=== PATIENT | male | born 1990 | race Caucasian/White ===

== ENCOUNTER 2019-10-11 15:00 | Outpatient (RCR) | payer OTHER, SELFPAY ==
--- NOTE | 2019-08-03 13:26 | HP.PTEVAL_ITS ---
Patient's Visit Information ENEDINA CASILLAS is a 29 year old M referred to Physical Therapy by Dr. Fransico Velarde MD with a diagnosis of LBP, prirformis syndrome. Date of Evaluation: 08/03/19 Physical Therapist: Ward Patterson, DPT, OCS, CSCS - Visit Plan Frequency: 2-3x /Week Duration: 4-6 Weeks Plan: 2-3x/week for 2-6 weeks : L/S ext mobs and ext bias ROM progressing to remodelling ex and core strength to tolerance. rollout and stretch R piriformis. Progression to yoga flows and wrestling moves to tolerance once back on regular workout. Ensure approp body mechanics and posture throughout. 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 Sriram philip adn continued stretching adn running. Then started some L sided back pain shortly thereafter about a month ago late June. Stretched and used foam roller and froze up and lost ROM. Doctor wants him to stretch and use muscle relaxers which has improved his ROM and flex but still has spasm on L LB. Back to doctor yesterday who ordered more muscle relaxers, prednisone and therapy for possible piriformis syndrome. Doesn't have any pain down legs or numbness. 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 Sitting is comfortable for a little while and getting up is L LB painful and radha. Flexing to stand is irritating. Doesn't feel much in R hip until starts to stretch aggressively. Sleep is OK. Mornings are stiff in LB but not bad. Basic ADLs are OK. Avoiding sprinting due to R piriformis pain(not since May). Avoids jogging as it irritates back. Can jump rope. Doing light dumbbells and tolerates OK upper body. Squatting makes back pain noticeable. - Pain L LB Pain Intensity (Out of 10): 0 Pain Intensity Range: 0, 6 R hip pirifromis Pain Intensity (Out of 10): 0 Pain Intensity Range: 0, 6 - Objective Walks normal, Posture is forward head and flat lordosis. Tenderness slightly over R piriformis Also to PA pressure L34 in lumbar spine. reflexes 2/3 patella adn achilles. Senation LE WNL to gross lgiht touch. Strength LE 4+/5 without pain. - slump, -SLR. repeated ext seems to increase LB ROM and decrease pain with movmement. - Goals Goal 1:: Full LS AROM without pain including touch ground in front without hip pain. Goal Time Frame: 4-6 Weeks Goal 2:: Pt feel 90% better and back to normal workout Goal Time Frame: 4-6 Weeks Goal 3:: Arise from chair consistently without pain Goal Time Frame: 4-6 Weeks Goal 4:: I approp HEP to minimize future problems. Goal Time Frame: 4-6 Weeks - Rehabilitation Potential Physical Therapy Diagnosis: LBP likely discal, piriformis syndrome. Rehabilitation Potential: Good - Anticipated Interventions Patient/Client Instruction: Educate patient on: Condition, Plan of Care For the Purpose of:: To decrease pain, To increase ROM, To increase tolerance to activity/condition/position Therapeutic Exercise to Include: Strength training, Postural training, Flexibilty training, Neuromotor development, Passive ROM, Active ROM, Dynamic Lumbar Stabilization, Jessy Exercises For the Purpose of:: To decrease pain, To increase ROM, To improve muscle performance and motor function, To increase tolerance to activity/condition/position, To improve ability of physical actions for home/community/work/leisure Manual Therapy Techniques to Include: Mobilization For the Purpose of:: To increase ROM Thank you for the opportunity to evaluate your patient. For Medicare and Medicare HMO plans, please review the plan of care and approve it. It will need to be FAXED BACK to us at [phone] for Medicare purposes. For Medicare only, by signing this I certify the plan of care. Please let me know if there are questions or concerns regarding this plan of care. Physician Signatur e: Date:
--- NOTE | 2019-08-23 14:08 | HP.PTREVAL_ITS ---
Dr. Fransico Velarde MD, It has been my pleasure to treat ENEDINA CASILLAS over the last 7 visits for LBP, prirformis syndrome. Please see the progress note below for an update on the physical therapy plan of care! Subjective: Going the right way. Still can feel spasm in left lower back but less intense. Sitting too long will make it worse still especially without support. PPU every two hours. Set back a few days ago. Still conscious of posture adn HEP. Objective/Function: Segmentally still limited in lower rlumbar, no pain and better movment after mobs today to low back ext.. Flexion is still slow and tight. Pain much improved. On the right track but slow. Plan Plan: weekly to progress function adn ROM.Do ext mobs weekly to low back, check extension and flexion and add rotation yoga next session if able, Monitor squat, ballistic and jumping. Goals Goal 1:: Full LS AROM without pain including touch ground in front without hip pain. Goal Time Frame: 4-6 Weeks Goal Progress: Progressing Goal 2:: Pt feel 90% better and back to normal workout Goal Time Frame: 4-6 Weeks Goal Progress: Progressing Goal 3:: Arise from chair consistently without pain Goal Time Frame: 4-6 Weeks Goal Progress: Goal Met Goal 4:: I approp HEP to minimize future problems. Goal Time Frame: 4-6 Weeks Goal Progress: Progressing Anticipated Interventions Patient/Client Instruction: Educate patient on: Condition, Plan of Care For the Purpose of:: To decrease pain, To increase ROM, To increase tolerance to activity/condition/position Therapeutic Exercise to Include: Strength training, Postural training, Flexibilty training, Neuromotor development, Passive ROM, Active ROM, Dynamic Lumbar Stabilization, Jessy Exercises For the Purpose of:: To decrease pain, To increase ROM, To improve muscle performance and motor function, To increase tolerance to activi ty/condition/position, To improve ability of physical actions for home/community/work/leisure Manual Therapy Techniques to Include: Mobilization For the Purpose of:: To increase ROM Please do not hesitate to contact me at [phone] by phone or if you have questions or concerns regarding this new plan of care! Sincerely, Ward Patterson, DPT, OCS, CSCS
--- NOTE | 2019-09-20 15:37 | HP.PTREVAL ---
Dr. Fransico Velarde MD, It has been my pleasure to treat ENEDINA CASILLAS over the last 9 visits for LBP, prirformis syndrome. Please see the progress note below for an update on the physical therapy plan of care! Subjective: Had a setback 9 days ago. backed off and did not do much except stretches and it worked. Last 8 days have been good. No pain, tightness in LB persists at times. Been doing half squats and box squats without a problem with 20# DB. Did hang cleans and deadlifts withotu issue staying fairly light. Jumping rope and hitting heavy bag OK. Objective/Function: Lumbar extension is full and painfree, felxion is full, SB are full, no pain today. moving well. Hip tightness seems to keep pelvis posteriorly tilted at bottom of squat casuing some tightness. Pt feels this well and can try and work on it at home with my cueing. Plan Plan: Pt to work on hip flexibility at home, continue to progress core strength per below and try to gradually lower squat without pelvis moving dysfunctionally . F/U in 3 weeks to ensure progress and talk about sit ups and returning to wrestling. New goal set adn fair prognosis to cotninue intermittent f/u with patient doing the work at home. Goals Goal 1:: Full LS AROM without pain including touch ground in front without hip pain. Goal Time Frame: 4-6 Weeks Goal Progress: Goal Met Goal 2:: Pt feel 90% better and back to normal workout Goal Time Frame: 4-6 Weeks Goal Progress: Progressing,approp Goal 3:: Arise from chair consistently without pain Goal Time Frame: 4-6 Weeks Goal Progress: Goal Met Goal 4:: I approp HEP to minimize future problems. Goal Time Frame: 4-6 Weeks Goal Progress: Progressing,a pprop Goal 5:: Squat past 90 without pelvis flexing L/S forward Goal Time Frame: 2-4 Weeks Goal Progress: NEW GOAL Anticipated Interventions Patient/Client Instruction: Educate patient on: Condition, Plan of Care For the Purpose of:: To decrease pain, To increase ROM, To increase tolerance to activity/condition/position Therapeutic Exercise to Include: Strength training, Postural training, Flexibilty training, Neuromotor development, Passive ROM, Active ROM, Dynamic Lumbar Stabilization, Jessy Exercises For the Purpose of:: To decrease pain, To increase ROM, To improve muscle performance and motor function, To increase tolerance to activity/condition/position, To improve ability of physical actions for home/community/work/leisure Manual Therapy Techniques to Include: Mobilization For the Purpose of:: To increase ROM Please do not hesitate to contact me at [phone] by phone or if you have questions or concerns regarding this new plan of care! Sincerely, Ward Patterson, DPT, OCS, CSCS
--- NOTE | 2019-10-11 15:44 | HP.PTDCSUM_ITS ---
It has been my pleasure to treat ENEDINA CASILLAS referred by Dr. Fransico Velarde MD, with the diagnosis of LBP, prirformis syndrome for a total of 10 visit(s). Discharge Date: 10/11/19 Please see the following information for a summary of their discharge status. Subjective: Got back to pretty good. Still has baseline constant R LBP 2/10 with a spike now and then back down. Has stopped since we talked the bag. Has run alot more. Not doing the more dynamic stuff of agility. Doing really light squats. To doctor in October end. Pain on R side comes around to lateral hip L LB Pain Intensity (Out of 10): 0 R hip pirifromis Pain Intensity (Out of 10): 0 % Improvement: 85 Objective/Function: Squat to parllel to ground and has just slight post pelvic tilt upon reversal, better. L/S AROM is very good but slight increase R LBP with ext whcih is minimally stiff. That baseline 2/10 pain goes away as does ext pain after ext mobs. We have not been able to get it to stick senior care. It seems to come backa t some point during his week. He has yet to be able to progress to wrestling or consistent bag punching Goal 1:: Full LS AROM without pain including touch ground in front without hip pain. Goal Progress: Goal Met Goal 2:: Pt feel 90% better and back to normal workout Goal Progress: plateau Goal 3:: Arise from chair consistently without pain Goal Progress: Goal Met Goal 4:: I approp HEP to minimize future problems. Goal Progress: Goal Met Goal 5:: Squat past 90 without pelvis flexing L/S forward Goal Progress: improving Plan: Recommend retrun to doctor for next medical step as treatment help but does not full stick the improvement. Pt will schedule with Dr Velarde for next step(MRI, Injection). He is considering chripractic which is not a bad idea. If there are questions or concerns regarding this patient's physical therapy, please feel free to call me at [phone]. Thank you for the referral of this patient. Sincerely, Ward Patterson, DPT, OCS, CSCS
== END 2019-10-11 19:00 | disposition home or self-care (01) ==
LOC: PT 15:00
PROVIDERS: PCP Family Medicine; Referring Provider Family Medicine; Visit Provider Family Medicine
DX: G57.01 Lesion of sciatic nerve, right lower limb (principal); M54.5 Low back pain
CPT/HCPCS: 97110; 97140; 97162; 97164; 97530

== ENCOUNTER → 2020-01-01 14:11 | Outpatient (CLI) | payer OTHER, SELFPAY ==
--- NOTE | 2020-01-01 14:13 | RAD_ITS ---
HISTORY: chronic low back pain ADDITIONAL HISTORY: None provided. EXAMINATION/TECHNIQUE: XR Spine Lumbar Comp W/ Bending Min 6 Views Number of images including paperwork: 7 COMPARISON: None FINDINGS: VERTEBRAE: No acute fracture. Bilateral L5 spondylolysis. VERTEBRAL ALIGNMENT: No traumatic subluxation. 8-10 mm of anterolisthesis of L5 on S1. No instability seen on flexion and extension images. DISKS AND JOINTS: Mild discogenic degenerative changes at L1-2. Facet arthropathy. SOFT TISSUES: Unremarkable paraspinous soft tissues. RAD/L/S Spine Bending Flex/Ext IMPRESSION: Degenerative changes without acute abnormality. Bilateral L5 spondylolysis with grade 1 anterolisthesis. at 0632 Reported and signed by: Lashon Cali MD Electronically Signed: Lashon Cali MD at 6:32 EDT Tel , Service support ,
== END ==
PROVIDERS: PCP Family Medicine; Referring Provider Family Medicine; Visit Provider Family Medicine
DX: M54.5 Low back pain (principal)
CPT/HCPCS: 72120

== ENCOUNTER → 2022-12-13 | Outpatient (CLI) | payer OTHER, SELFPAY ==
--- NOTE | 2022-12-13 12:45 | RAD_ITS ---
INDICATION: back pain EXAMINATION/TECHNIQUE: X-RAY - XR Spine Thoracic 2 Views COMPARISON: No relevant prior comparison study available FINDINGS: VERTEBRAE: Preserved vertebral body height. No fracture. No spondylolisthesis. Preservation of the normal thoracic kyphosis. Small endplate osteophytes present throughout the thoracic spine No significant facet arthropathy. DISCS: Disc spaces are maintained. INCLUDED CHEST/ABDOMEN: No acute abnormalities. RAD/Thoracic Spine 2 Views IMPRESSION: No evidence of thoracic spinal fracture or spondylolisthesis. Electronically Signed: Jose Armando Cloud MD at 17:46 EDT ,
== END | disposition home or self-care (01) ==
PROVIDERS: PCP Family Medicine; Referring Provider Family Medicine; Visit Provider Family Medicine
DX: M54.9 Dorsalgia, unspecified (principal)
CPT/HCPCS: 72070

== ENCOUNTER → 2023-02-16 | Outpatient (CLI) | payer OTHER, SELFPAY ==
[2023-02-16 18:17] LABS: ALB/GLOB Ratio 1.1 RATIO (0.9-2.4); AST(SGOT) 26 U/L (15-37); Alanine Aminotransfer ALT/SGPT 37 U/L (16-61); Albumin, Serum 4.4 g/dL (3.2-5.0); Alkaline Phosphatase 69 U/L (45-117); Anion Gap 7 (5-15); BUN 17 mg/dL (7-18); BUN/Creat Ratio 17.7 RATIO (10-20); CPK Total, Creatine Kinase 243 U/L (39-308); Calcium,Total 9.3 mg/dL (8.5-10.1); Chloride 104 mmol/L (98-107); Creatinine, Serum 0.96 mg/dL (0.70-1.30); EST Glomerular Filtration Rate 95 mL/min (>60); Est Glom Filt Rate - Afr Amer 115 mL/min (>60); Ferritin 90 ng/mL (26-388); Glucose 93 mg/dL (74-106); Magnesium 2.3 mg/dL (1.6-2.6); Protein, Total 8.4 g/dL (6.4-8.2); Sodium Level 138 mmol/L (136-145); Thyroid Stim Hormone (TSH) 1.47 uIU/mL (0.358-3.74)
== END | disposition home or self-care (01) ==
LOC: MFPLAB 16:33
PROVIDERS: PCP Family Medicine; Visit Provider Family Medicine
DX: R25.2 Cramp and spasm (principal)
CPT/HCPCS: 36415; 80053; 82550; 82728; 83735; 84443